=== PATIENT | male | born 2000 | race Caucasian/White ===

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

== ENCOUNTER → 2020-12-01 | Outpatient (CLI) | payer OTHER ==
--- NOTE | 2020-12-01 13:38 | XR ---
EXAMINATION TYPE: XR hand complete RT DATE OF EXAM: 12/01/2020 COMPARISON: NONE HISTORY: 20-year-old male R79.641, right hand pain. TECHNIQUE: 3 views FINDINGS: Some external debris or debris below the distal aspect of the nail on the radial side of the thumb na il. No acute fracture, subluxation, or dislocation seen. Joint spaces are maintained. IMPRESSION: No acute osseous abnormality seen. If concern for an occult osseous injury, CT can be considered.
== END | disposition home or self-care (01) ==
LOC: RADXRMAIN 12:06
PROVIDERS: ATTEND Pediatrics Adolescent Medicine
DX: M79.641 Pain in right hand (principal)